=== PATIENT | male | born 1940 | race Caucasian/White ===

== ENCOUNTER → 2016-12-05 | Outpatient (CLI) | payer MEDICARE ==
[~2016-12-05] MED LIST: ASPIRIN PO; CENTRUM SILVER PO; COQ PO; COREG PO; DICLOFENAC PO; LIPITOR PO; LISINOPRIL PO; LODINE XL500 MG PO; MONTELUKAST SOD10 MG PO; PLAVIX PO; VICODIN PO; ZYRTEC10 M3 PO
--- NOTE | ~2016-12-05 | CR7 ---
[facility] A Service of [facility] RADIOLOGY TEXT RESULTS PATIENT: AGGIE SMILEY LOCATION: [facility] : 40 UNIT #: [id number] AGE: [address]: Douglas Abernathy MD SEX: M ORDER DR: [id number] [place] [id number] O MR#: [id number] Acc #: [id number] NAME: AGGIE SMILEY : 1940 SEX: M STUDY DATE/TIME: 12/05/2016 9:32 UNIT: [facility] ROOM: STUDY DESCRIPTION: CR Abdomen Single AP View Attending Physician: Douglas Abernathy M.D. Referring Physician: Douglas Abernathy M.D. Ordering Physician: Douglas Abernathy M.D. Primary Care Physician: Uziel Newton M.D. MEDICAL IMAGING REPORT This report is preliminary unless electronic signature is present. EXAM Frontal abdomen 12/05/2016 INDICATIONS 76-year-old male with history of renal stone, urinary tract infection with pain for a month. Symptoms better after antibiotic therapy the last 8 days. Dysuria since September. Frontal abdomen was performed. COMPARISON STUDIES No comparisons. FINDINGS Probable radiopaque stone projecting over the mid to upper pole right kidney measures 5 mm. Probable splenic calcifications on the left. Equivocal tiny smaller stone projecting over the mid pole right kidney measures about 1-2 mm and there is a nonspecific linear calcification projecting over the mid to upper pole right kidney more medially measuring up to 6 mm. These could represent additional right-sided stones. There is atherosclerotic change and tortuosity of the aorta. Probable vascular calcifications in the pelvis. Mild degenerative change in the lumbar spine. IMPRESSION 1. At least 1 or 2 and perhaps up to 3 right-sided renal stones, the largest of which measures up to about 5-6 mm. 2. Splenic granulomatous calcifications. 3. Tortuous and atherosclerotic aorta. 1. Dictated by... Dylan Carter M.D. [facility] A Service of [facility] RADIOLOGY TEXT RESULTS PATIENT: AGGIE SMILEY LOCATION: [facility] : 40 UNIT #: [id number] AGE: [address]: Douglas Abernathy MD SEX: M ORDER DR: THIS IS AN ELECTRONICALLY VERIFIED REPORT Dylan Carter M.D. at 12/05/2016 10:46 PM Briseyda TD: 12/05/2016 16:21 JOB #: [id number] MEDICAL IMAGING REPORT Page 1 of 1
--- NOTE | ~2016-12-05 | CT105 ---
[facility] A Service of [facility] RADIOLOGY TEXT RESULTS PATIENT: AGGIE SMILEY LOCATION: [facility] : 40 UNIT #: [id number] AGE: [address]: Douglas Abernathy MD SEX: M ORDER DR: [id number] [place] [id number] O MR#: [id number] Acc #: [id number] NAME: AGGIE SMILEY : 1940 SEX: M STUDY DATE/TIME: 12/05/2016 9:33 UNIT: [facility] ROOM: STUDY DESCRIPTION: CT Pelvis W Cont Attending Physician: Douglas Abernathy M.D. Referring Physician: Douglas Abernathy M.D. Ordering Physician: Douglas Abernathy M.D. Primary Care Physician: Uziel Newton M.D. MEDICAL IMAGING REPORT This report is preliminary unless electronic signature is present. EXAM Pelvis CT with contrast 12/05/2016 INDICATIONS Nodular prostate and obstruction. Urinary tract infection and pain for a month. Symptoms have improved for the last 8 days after antibiotic therapy. Dysuria since September of this year. History of left nephrectomy 1971. Renal stones. TECHNIQUE Contrast enhanced CT of the pelvis was performed. This CT exam was performed with one or more of the following radiation dose reduction techniques: automatic exposure control, adjustment of mA and/or kV according to patient size, and iterative reconstruction. COMPARISON STUDIES We have no comparisons. FINDINGS CT PELVIS: Included aorta demonstrates atherosclerotic change but no aneurysm or dissection. Tiny left inguinal hernia containing fat only present. Prostate measures of 4.0 x 2.9 cm. The bladder wall is borderline thickened along its anterior superior margin. This is nonspecific and may reflect incomplete distension or perhaps some mild residual cystitis given the provided history. No distinct mass identified or radiopaque stone identified and this should be correlated clinically. No drainable fluid collection in the pelvis or free fluid. There is diverticulosis of the sigmoid colon to a mild degree. Remainder the visualized bowel is unremarkable. No adenopathy. Osseous structures demonstrate no suspicious bone lesion. IMPRESSION [facility] A Service of [facility] RADIOLOGY TEXT RESULTS PATIENT: AGGIE SMILEY LOCATION: [facility] : 40 UNIT #: [id number] AGE: [address]: Dougals Abernathy MD SEX: M ORDER DR: 1. The prostate measures about 4.0 x 2.9 cm. No significant mass effect upon the bladder. No adenopathy or drainable fluid collection in the pelvis. 2. The bladder is incompletely distended. There is mild wall thickening along the anterior superior margin of the bladder that may reflect incomplete distension or perhaps an element of mild residual cystitis given the provided history. No evidence of a recently passed stone. 3. Incidental diverticulosis and tiny left inguinal hernia containing fat only. Dictated by... Dylan Carter M.D. THIS IS AN ELECTRONICALLY VERIFIED REPORT Dylan Carter M.D. at 12/05/2016 10:51 PM Briseyda TD: 12/05/2016 15:55 JOB #: [id number] MEDICAL IMAGING REPORT Page 1 of 1
[2016-12-05 09:50] LABS: POC - CREATININE 1.12 mg/dL (0.64-1.27); POC - GFR >60.0 mL/min (>60)
== END | disposition home or self-care (01) ==
LOC: SCT 08:09
PROVIDERS: Urology
DX: N40.3 Nodular prostate with lower urinary tract symptoms (principal); N32.89 Other specified disorders of bladder; N20.0 Calculus of kidney; D73.89 Other diseases of spleen; I70.0 Atherosclerosis of aorta
CPT/HCPCS: 72193; 74000; 82565; Q9967

== ENCOUNTER → 2017-03-07 | Outpatient (CLI) | payer MEDICARE ==
--- NOTE | ~2017-03-07 | CR7 ---
[facility] A Service of [facility] & [facility] RADIOLOGY TEXT RESULTS PATIENT: AGGIE SMILEY LOCATION: [facility] : 40 UNIT #: [id number] AGE: [address]: Douglas Abernathy MD SEX: M ORDER DR: [id number] [address] [address] [id number] O MR#: [id number] Acc #: [id number] NAME: AGGIE SMILEY : 1940 SEX: M STUDY DATE/TIME: 03/07/2017 8:18 UNIT: [facility] ROOM: STUDY DESCRIPTION: CR Abdomen Single AP View Attending Physician: Douglas Abernathy M.D. Referring Physician: Douglas Abernathy M.D. Ordering Physician: Douglas Abernathy M.D. Primary Care Physician: Uziel Newton M.D. MEDICAL IMAGING REPORT This report is preliminary unless electronic signature is present. EXAM Single-view abdomen HISTORY Right-sided renal stones prior left nephrectomy in 72. FINDINGS Single view of the abdomen demonstrates a stable calcifications overlying the right kidney which may represent a combination of vascular calcifications and a stone. The largest measures just over 5 mm. Calcifications in the left upper quadrant compatible with a splenic granulomas. Moderate amount of colonic stool. Tortuous aorta with calcifications compatible with atherosclerotic changes. Mild degenerative changes lumbar spine. IMPRESSION Stable calcifications overlying the right kidney may represent a combination of renal stones and vascular calcification. Unchanged from 12/05/2016. Dictated by... Fabián Weiss M.D. THIS IS AN ELECTRONICALLY VERIFIED REPORT Fabián Weiss M.D. at 03/08/2017 7:59 AM ANGELES/derrick TD: 03/07/2017 23:54 JOB #: [id number] MEDICAL IMAGING REPORT Page 1 of 1
== END | disposition home or self-care (01) ==
LOC: SLAB 08:07
DX: N20.0 Calculus of kidney (principal); N40.3 Nodular prostate with lower urinary tract symptoms; N28.89 Other specified disorders of kidney and ureter
CPT/HCPCS: 36415; 74000; G0103

== ENCOUNTER 2017-03-24 15:39 | Emergency (ER) | payer MEDICARE ==
[~2017-03-24] VITALS: Ht 190.5 cm; Wt 82.5 kg
--- NOTE | ~2017-03-24 | CR72 ---
[facility]. [facility] A Service of [facility] & [facility] RADIOLOGY TEXT RESULTS PATIENT: AGGIE SMILEY LOCATION: SED : 40 UNIT #: [id number] AGE: [address]: Jovita Murray SEX: M ORDER DR: [id number] [address] [address] [id number] E MR#: [id number] Acc #: [id number] NAME: AGGIE SMILEY. : 1940 SEX: M STUDY DATE/TIME: 03/24/2017 18:54 UNIT: [facility] ROOM: STUDY DESCRIPTION: CR Chest Single View Portable Attending Physician: Jovita Murray Pa-C Ordering Physician: Physician Non-Staff Primary Care Physician: Uziel Newton M.D. MEDICAL IMAGING REPORT This report is preliminary unless electronic signature is present. EXAM Portable chest HISTORY Cardiac arrhythmia. Heart palpitations. Defibrillator fired today. FINDINGS Mild cardiac enlargement. Normal pulmonary vascularity. Left subclavian AICD leads extend into the right atrium right ventricle. Mild linear atelectasis or scarring at the lateral left base. IMPRESSION 1. No acute findings and no active disease in the lungs. 2. Mild linear atelectasis or scarring in the lateral left base. 3. Borderline cardiac enlargement. Dictated by... Chad Dodd M.D. THIS IS AN ELECTRONICALLY VERIFIED REPORT Chad Dodd M.D. at 03/25/2017 8:39 PM BEBO/juancho TD: 03/24/2017 23:47 JOB #: [id number] MEDICAL IMAGING REPORT Page 1 of 1
--- NOTE | ~2017-03-24 | EKG ---
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
[2017-03-24 16:47] LABS: BASOPHIL# 0.1 X10e3 (0-0.3); BASOPHIL% 0.8 % (0-2.5); EOSINOPHIL# 0.3 X10e3 (0-0.7); EOSINOPHIL% 4.5 % (0.0-7.0); LYMPHOCYTE# 2.1 X10e3 (1.0-3.5); LYMPHOCYTE% 29.2 % (17.0-45.0); MEAN CELL VOLUME 92.6 FL (83-96); MEAN CORPUSCULAR HEMOGLOBIN 31.7 PG (28-34); MEAN CORPUSCULAR HGB CONC 34.2 g/dL (30-36); MEAN PLATELET VOLUME 7.2 FL (6.5-11.5); MONOCYTE# 0.8 X10e3 (0-1.0); MONOCYTE% 11.3 % (3.0-12.0); NEUTROPHIL# 3.9 X10e3 (1.5-7.1); NEUTROPHIL% 54.2 % (40-75); PLATELET COUNT 225 X10e3 (140-420); RED CELL DISTRIBUTION WIDTH 14.1 % (11.0-15.5); WHITE BLOOD COUNT 7.1 X10e3 (4.0-10.5)
[2017-03-24 16:48] LABS: DIFF IND NO
[2017-03-24 16:57] LABS: ALBUMIN SERUM 3.9 g/dL (3.5-5.0); ALKALINE PHOSPHATASE 112 U/L (32-92); ALT (SGPT) 21 U/L (10-40); AST (SGOT) 24 U/L (10-42); BILIRUBIN,TOTAL 0.7 mg/dL (0.2-2.0); BLOOD UREA NITROGEN 27 mg/dL (9-23); BUN/CREATININE RATIO 16.87; CALCIUM SERUM 9.1 mg/dL (8.4-10.2); CARBON DIOXIDE 25 mmol/L (22-31); CHLORIDE 109 mmol/L (100-111); CREATININE SERUM 1.6 mg/dL (0.6-1.4); GLUCOSE FASTING 96 mg/dL (70-110); PROTEIN TOTAL SERUM 6.9 g/dL (6.0-8.3); SODIUM 139 mmol/L (135-145)
[2017-03-24 17:13] LABS: BILIRUBIN, DIRECT <0.1 mg/dL (0.0-0.2); BILIRUBIN,INDIRECT 0.6 mg/dL (0.0-0.9)
[2017-03-24 17:20] LABS: POC - CKMB <1.0 ng/mL (0.0-7.9); POC - TROPONIN <0.05 ng/mL (<=0.05)
== END 2017-03-24 19:31 | disposition home or self-care (01) ==
LOC: SED 15:39
PROVIDERS: Physician Assistant
DX: T82.198A Other mechanical complication of other cardiac electronic device, initial encounter (principal); I10 Essential (primary) hypertension; J44.9 Chronic obstructive pulmonary disease, unspecified; F17.200 Nicotine dependence, unspecified, uncomplicated; Z79.899 Other long term (current) drug therapy
CPT/HCPCS: 71010; 80048; 80076; 82553; 84484; 85025; 93005; 99284